=== PATIENT | female | born 1960 | race African-American/Black ===

== ENCOUNTER 2025-08-29 08:55 | Outpatient (CLI) | payer MEDICAID, SELFPAY ==
--- NOTE | ~2025-08-29 | XR_ITS ---
EXAMINATION: XR elbow RT min 3V, 08/29/2025 9:05 RECRUITMENT DIRECTOR HISTORY: Pain in rt elbow COMPARISON: No comparisons available. Findings: No acute fracture or malalignment. No significant degenerative changes. Soft tissues unremarkable. Impression: No acute fracture or malalignment. Reviewed, dictated and finalized at location P. UITMENT DIRECTOR Impression: No acute fracture or malalignment.
== END 2025-08-29 08:56 | disposition home or self-care (01) ==
LOC: ANHIMG 09:00
PROVIDERS: PCP Emergency Medicine; Visit Provider Emergency Medicine
DX: M25.521 Pain in right elbow (principal)
CPT/HCPCS: 73080